=== PATIENT | male | born 1985 | race African-American/Black ===

== ENCOUNTER 2017-01-03 21:28 | Inpatient (IN) | payer OTHER ==
--- NOTE | ~2017-01-03 | PA ---
Unit #: [id number] #: [id number] Patient: KELLEE BRAND [id number] [place] [address] [id number] I MR#: [id number] NAME: KELLEE BRAND ROOM: P210 Age: 31 Sex: M Admission Date: 01/03/2017 : 1985 Date of Assessment: Attending Physician: Curtis Toure M.D. Admitting Physician: Curtis Toure M.D. PSYCHIATRIC ASSESSMENT LOCATION [facility], [address] [place] [address], room #210, bed #2. DATE OF SERVICE 01/04/2017. INFORMANTS The patient and chart. The patient is less than reliable, limited cooperation and responsiveness. CHIEF COMPLAINT "I just can't go on with life anymore." HISTORY OF PRESENT ILLNESS This is a 31-year-old male who has been admitted to [facility] multiple times, typically under Dr. Harden's care, who is currently unavailable. The patient returns now, after being gone for nearly a year, for issues with suicidal ideation, continued poor compliance with medication treatment and supposedly having auditory/visual hallucinations telling him to harm himself. The patient on interview today is very guarded and vague in his responses, often times citing the comment I just do not have the energy to talk about it right now when he was asked questions. He just kept saying over and over how much life "sucked" and that he could not deal with it any more. The chart reports that he told the initial interviewers that he had a family member who recently, as well as supposedly had attempted overdosing on medications at home at least twice in the last couple of weeks. When asked about this, the patient had no comment. The patient continues to voice thoughts about wanting to , to harm himself, that nobody would care, etc. When asked about recent drug use, he did not respond, again citing that he was feeling overwhelmed and did not want to talk about it. Staff reports he has been responsive to direction, no behavioral issues. The patient has not had any followup care, according to him, since he left here, so it is unclear where he has been receiving his psychiatric medications. When asked if he was getting through his primary care doctor, again he said I do not know. PAST PSYCHIATRIC HISTORY As noted above. Chronic history of suicidal ideation and reported attempts. Substance abuse is a comorbid issue with this individual, unclear about the accuracy of history of hallucinations. PAST MEDICAL HISTORY Unit #: [id number] #: [id number] Patient: KELLEE BRAND Reviewed with no changes. CURRENT MEDICATIONS Supposedly include lithium, Risperdal, trazodone unclear how compliant the patient has been with any of them. ALLERGIES No known drug allergies. FAMILY HISTORY Reported schizophrenia in a peripheral family member, beyond that no other issues. SOCIAL HISTORY The patient is essentially homeless, from his for 3 to 4 years now and has a high school degree, but is currently on disability. He has 2 grown children that he has limited contact with. SUBSTANCE ABUSE HISTORY Longstanding issues with alcohol, heroin, and, according to previous dictations, "anything he can get his hands on." The patient overall is unclear in his current usage, but has been treated many times in various facilities. MENTAL STATUS EXAMINATION General appearance; this is a poorly groomed male, looks much older than stated age, limited eye contact. Speech was clear, but brief. Mood was irritable, depressed with blunted affect. Thought process and content were fairly organized if not guarded, and no active HI. The patient still claiming SI with thoughts of walking into traffic and/or overdosing. Denies any acute auditory or visual hallucinations, but reported them recently. The patient's memory is currently intact, but it of questionable accuracy given his limited cooperation. Associations seemed guarded. Alert and oriented x4. Cognitive function seems to be moderate. Insight and judgment are poor. ASSETS AND LIABILITIES Assets include previous exposure to inpatient care and therapeutic interventions. Liabilities include failure for outpatient followup care, failure of proper medication management, homelessness, poor support. ADMITTING DIAGNOSES 1. Major depressive disorder, recurrent, severe, without psychotic features. 2. Cocaine dependency by history. 3. Cannabis dependency by history. PLAN The patient to be admitted for safety and stabilization for ongoing issues with suicidal ideation and depression. We will monitor closely for behavioral issues and provide proper treatment within the therapeutic milieu environments. The patient will be restarted on Risperdal 2 mg at bedtime as well as trazodone 50 mg at bedtime, as he has responded well to these in the past. We will add Zoloft 50 mg to help with further antidepressant benefit. The patient was made aware of this, educated about the side effects and he agreed. Treatment goals will be resolution of the patient's mood and suicidal ideation and to provide a safe controlled environment. Unit #: [id number] #: [id number] Patient: KELLEE BRAND DISCHARGE PLANNING Likely involving community resources and social service technician for additional support resources if possible. ESTIMATED LENGTH OF STAY Approximately 5 days depending on the patient's progress and response to treatment. Dictated by... Curtis Toure M.D. MARTI/mary lou TD: 01/04/2017 10:39 JOB #: [id number] PSYCHIATRIC ASSESSMENT Page 1 of 1 X Curtis Toure MD X PSYCHIATRIC ASSESSMENT
--- NOTE | ~2017-01-03 | PN ---
Unit #: [id number] #: [id number] Patient: KELLEE BRAND [id number] [facility] [address] [place] [address] [id number] MR#: [id number] NAME: KELLEE BRAND ROOM: P210 Age: 31 Sex: M Admission Date: 01/03/2017 : 1985 Attending Physician: Curtis Toure M.D. Admitting Physician: Curtis Toure M.D. Primary Care Physician: Primary Care Physician Fang HART NOTES DATE 01/06/2017 SUBJECTIVE UPDATE This is a 31-year-old male here with ongoing issues with severe depression and suicidal ideation. Patient continuing to report significant depression, thoughts about harming himself with vague plans of walking into traffic. Eye contact was slightly better today and patient seemed more focused but still has a very flat blunted affect. He is still very defeatist and hopeless. He is tolerating medications and made a request for change from Tylenol to ibuprofen for his back pain. MENTAL STATUS EXAMINATION General appearance is a limited groomed male somewhat slightly improved eye contact. Speech was clear and coherent with normal prosody but brief but was depressed with a flat and blunt affect. Thought process and content are grossly organized, linear, no overt evidence of psychosis. Positive for SI with vague plan about walking into traffic still but no HI. Patient's memory was grossly intact. Associations were normal. He is alert and oriented times four. Cognitive functioning is at baseline. Insight and judgement remained poor. RECOMMENDATIONS: Will continue patient's admission for safety and stabilization for ongoing issues with suicidal ideation and his depression. Will increase Zoloft from 50 to 100 mg today to better aid with this treatment as he is tolerating it thus far and will switch from Tylenol to ibuprofen 600 mg every 6 hours as needed pain. Patient encouraged to continue with groups and activities and socialization as much as possible. Dictated by... Curtis Toure M.D. MARTI/wendy TD: 01/06/2017 20:16 JOB #: [id number] Unit #: [id number] #: [id number] Patient: KELLEE BRAND PROGRESS NOTES Page 1 of 1 X Curtis Toure MD NOTE
--- NOTE | ~2017-01-03 | PN ---
Unit #: [id number] #: [id number] Patient: KELLEE BRAND [id number] [place] [address] [id number] MR#: [id number] NAME: KELLEE BRAND ROOM: P210 Age: 31 Sex: M Admission Date: 01/03/2017 : 1985 Attending Physician: Curtis Toure M.D. Admitting Physician: Curtis Toure M.D. Primary Care Physician: Fang Primary Care Physician [facility] PROGRESS NOTES LOCATION [facility] [address], room [address], bed number 2. DATE 01/05/17 SUBJECTIVE UPDATE This is a 31-year-old -Surinames[place] male here with ongoing issues of severe depression, suicide ideation. The patient is continuing to report significant depression, decreased functioning focus, appetite, sleep and wanting to . He does report tolerating medication changes well and says he feels maybe "a notch better today". He still limited in his desire to interact with peers and staff. He seems feel isolated on the unit. No acute complaints per staff. MENTAL STATUS EXAM General appearance is a limitedly groomed, -Surinamese male who appears older than stated age. Speech was clear but brief. Mood was depressed with a blunted affect. Eye contact was minimal. Thought process and content were fairly organized but distracted. Positive for SI with still thoughts about overdosing or walking into traffic. No HI today. No psychosis. The patient's memory was grossly intact. Associations were normal. He is alert and oriented x4. Cognitive function seems to be at baseline. Insight and judgement remain poor. RECOMMENDATIONS We will continue the patient's admission for safety and stabilization for ongoing depression and suicide ideation and related symptoms as noted above. The patient continues to remain at risk and will continue medication regimen as current with possible increase in Zoloft soon if the patient continues to show progress. We will continue to encourage ambulation, socialization in groups for cathartic intervention and we will monitor daily. Dictated by.Bradley Toure M.D. MARTI/oleg TD: 01/05/2017 10:18 JOB #: [id number] Unit #: [id number] #: [id number] Patient: KELLEE BRAND PROGRESS NOTES Page 1 of 1 X Curtis Toure MD PROGRESS NOTE
--- NOTE | ~2017-01-03 | DS ---
Unit #: [id number] #: [id number] Patient: KELLEE BRAND [id number] [place] [address] [id number] I MR#: [id number] NAME: KELLEE BRAND ROOM: [facility] Age: 31 Sex: M Admission Date: 01/03/2017 : 1985 Discharge Date: 01/07/2017 Attending Physician: Curtis Toure M.D. Primary Care Physician: Primary Care Physician No DISCHARGE SUMMARY REASON FOR ADMISSION Major depressive disorder, severe, recurrent, without psychotic features. The patient has been reporting suicidal ideation because of "bad stuff in my life." DIAGNOSTIC STUDIES PERTINENT LABORATORY DATA: The patient had routine blood work that showed elevated CMP that showed elevated glucose of 121, total protein of 5.6, albumin of 3.0, alkaline phosphatase of 96, otherwise rest of the findings were normal. TSH slightly low at 0.27, but T4 normal at 0.72. [place] level was subtherapeutic as it was checked upon admission because of him reporting he was supposed to be taking, and d-dimer was noted to be at 119. CBC showed hemoglobin slightly low at 12.3. MCV 73.8, MCH of 22.9, otherwise normal, were all within the accepted parameters. VDRL was nonreactive as was an RPR. Tox screen was positive for cocaine upon admission. Urinalysis showed 0.2, urobilinogen was otherwise normal. No other tests performed. HOSPITAL COURSE The patient was admitted for safety and stabilization for issues with his depressed mood. He denied any recent changes beyond cocaine use in terms of substance abuse, but also has a history of cannabis dependency. Overall, the patient initially presented with complaints of feeling suicidal. He was with thoughts of walking into traffic or otherwise harming himself with a very morose demeanor, blunted affect with limited eye contact. The patient was restarted on Risperdal and trazodone as he has been on those in the past and has done well with them, and lithium had been discontinued from his medication list as he already obviously was not compliant with it. In addition, the Risperdal was restarted as a 2-mg dose and trazodone at 50 as he had been on previously. In addition, he was put on Zoloft which was titrated up to 100 mg daily to help with depressed mood and affect. Over the course in the hospitalization, the patient showed a fairly rapid progress in his treatment with on the day of discharge his affect being remarkably brighter, good eye contact reporting that a cousin had , and he was asking to be discharged. He was denying any active SI or HI and was focused on following up at [facility]. The patient had a plan to go home with his family and be there with them during this transitional time. Overall, the patient was felt to have returned to his baseline and was appropriate for discharge. The patient was denying any complications with medications, and overall presentation had remarkably improved. DISCHARGE DIAGNOSES 1. Major depressive disorder, recurrent, severe without psychotic Unit #: [id number] #: [id number] Patient: KELLEE BRAND. 2. Cocaine dependency. 3. Cannabis dependency by history. FOLLOWUP Followup care will be through [facility] he has already established with. DISCHARGE MEDICATIONS 1. Zoloft 100 mg daily for depression and anxiety. 2. Risperdal 2 mg at bedtime for mood stabilization. 3. Trazodone 50 mg at night for sleep. CONDITION AT DISCHARGE Improved. PROGNOSIS Guarded given his repetitive history of admission and noncompliance. DISCHARGE DIET Regular. DISCHARGE ACTIVITY As tolerated. Dictated by... Curtis Toure M.D. MARTI/janell TD: 01/07/2017 10:08 JOB #: [id number] DISCHARGE SUMMARY Page 1 of 1 X Curtis Toure MD X DISCHARGE SUMMARY
--- NOTE | ~2017-01-03 | HP ---
Unit #: [id number] #: [id number] Patient: WILMER BRAND [id number] [facility] [address] [place] [address] [id number] I MR#: [id number] NAME: WILMER BRAND ROOM: P210 Age: 31 Sex: M Admission Date: 01/03/2017 : 1985 Attending Physician: Curtis Toure M.D. Admitting Physician: Curtis Toure M.D. Primary Care Physician: Primary Care Physician No HISTORY AND PHYSICAL HISTORY OF PRESENT ILLNESS Wilmer is a 31 year old admitted to [address] [place] [address] because of his drug use. He uses cocaine. PAST MEDICAL HISTORY 1. Long history of illicit substance abuse to include cocaine. 2. Asthma. 3. History of abuse. PAST SURGICAL HISTORY Nothing reported. ALLERGIES No known drug allergies. SOCIAL HISTORY Smokes 2 packs per day. Drinks alcohol frequently. Admits to using cocaine on a regular basis. FAMILY HISTORY Medically noncontributory. REVIEW OF SYSTEMS CONSTITUTIONAL: No fever or chills. HEENT: Denies any sore throat, ear pain or runny nose. CARDIOVASCULAR: Denies chest pain, irregular heart rhythm or palpitations. CHEST: Denies shortness of breath or cough. No hemoptysis. GASTROINTESTINAL: Denies nausea, vomiting, diarrhea or chronic constipation. ENDOCRINE: Denies history of increased thirst or urination. No recent significant weight loss or gain. GENITOURINARY: Denies dysuria, frequency, or hematuria. SKIN: Denies any rashes. HEMATOLOGIC: Denies history of increased bleeding or bruising. MUSCULOSKELETAL: Denies any hot, swollen joints. No generalized muscle pain. NEUROLOGIC: Denies problems with vision or speech. No frequent, severe headaches. No numbness, tingling or weakness in any extremities. Denies loss of bladder or bowel control. CURRENT MEDICATIONS Detox protocol. Unit #: [id number] #: [id number] Patient: WILMER BRAND PHYSICAL EXAMINATION GENERAL: Alert, appearing much, much older than his stated age of 31, in no apparent distress. VITAL SIGNS: Blood pressure 114/70, heart rate 60, respirations 16, temperature 98.6. WEIGHT: 227. HEIGHT: 5 feet 6 inches. SKIN: Warm and dry without rash or lesion. HEENT: Normocephalic. TMs not viewed. Oral and nasal passages clear. Conjunctivae clear. PERRLA. EOMs intact. NECK: Supple without lymphadenopathy or thyromegaly. HEART: Regular rate and rhythm without murmur. LUNGS: Clear. ABDOMEN: Soft, nontender. : Not done. EXTREMITIES: No evidence of cyanosis, clubbing or edema. Moves all without focal deficit. NEUROLOGICAL: Grossly within normal limits. Cranial Nerves: II: Visual caceres are intact. III, IV AND : Extraocular movements are intact. Pupils are equal, round and reactive to light. V: Facial sensation is grossly normal. VII: Facial movements and expression are normal. VIII: Auditory acuity grossly intact. IX, X: Uvula is midline. Phonation is normal. XI: Patient shrugs shoulders and turns head normally. XII: Tongue protrudes in the midline. Sensory and Motor Function: Sensory and motor sensation is grossly normal. Motor: moves all extremities well. Coordination: Gait is normal. Deep Tendon Reflexes: Intact. IMPRESSION Psychiatric admission. RECOMMENDATIONS PSYCHIATRIC: Per psychiatrist. MEDICAL: See no contraindications to participate in facility's activities. MEDICAL PROGNOSIS Good. MEDICAL CONDITION Stable. Dictated by... Noar Renteria P.A.-C. for Sunitha Montague/wendy TD: 01/04/2017 20:56 JOB #: [id number] Unit #: [id number] #: [id number] Patient: WILMER BRAND HISTORY AND PHYSICAL Page 1 of 1 X Nora Renteria X HISTORY AND PHYSICAL
[~2017-01-03 21:28] MED LIST: ADVAIR 2501 DISK W/D PO; ALBUTEROL17 GM INH; DOXYCYCLINE HY100 M1 PO; DOXYCYCLINE PO; FLEXERIL10 MG PO; IBUPROFEN800 MG PO; MEDROL4 MG/DOSE- PO; NAPROSYN500 MG PO; PREDNISONE PO; VICODIN 5/1 TAB 5/50 PO; VICODIN 5/500 T1 TAB PO; VICODIN PO; ZANTAC150 M1 PO; [UNRECOGNIZED DRUG - REMARK]
[2017-01-04 09:48] LABS: BASOPHIL% 0.9 % (0-2.5); EOSINOPHIL# 0.6 X10e3 (0-0.7); EOSINOPHIL% 10.8 % (0.0-7.0); HEMATOCRIT 39.6 % (38.0-50.0); HEMOGLOBIN 12.3 gm/dL (13.0-16.0); LYMPHOCYTE# 1.6 X10e3 (1.0-3.5); LYMPHOCYTE% 30.1 % (17.0-45.0); MEAN CELL VOLUME 73.8 FL (83-96); MEAN CORPUSCULAR HEMOGLOBIN 22.9 PG (28-34); MEAN PLATELET VOLUME 9.2 FL (6.5-11.5); MONOCYTE# 0.8 X10e3 (0-1.0); MONOCYTE% 14.6 % (3.0-12.0); NEUTROPHIL# 2.3 X10e3 (1.5-7.1); NEUTROPHIL% 43.6 % (40-75); PLATELET COUNT 282 X10e3 (140-420); RED BLOOD COUNT 5.36 X10e (3.90-5.60); RED CELL DISTRIBUTION WIDTH 14.6 % (11.0-15.5); WHITE BLOOD COUNT 5.3 X10e3 (4.0-10.5)
[2017-01-04 10:01] LABS: THYROID STIMULATING HORMONE 0.27 uIU/ml (0.34-5.60)
[2017-01-04 10:07] LABS: FREE THYROXIN (T4) 0.72 ng/dL (0.58-1.64)
[2017-01-04 10:16] LABS: DIFF IND NO
[2017-01-04 10:19] LABS: BILIRUBIN,TOTAL 0.7 mg/dL (0.2-2.0); CALCIUM SERUM 8.7 mg/dL (8.4-10.2); GLOM FILT RATE Estimated 117.4 mL/min (>60); POTASSIUM 3.8 mmol/L (3.5-5.1); PROTEIN TOTAL SERUM 5.6 g/dL (6.0-8.3)
[2017-01-05 10:08] LABS: URINE APPEARANCE CLEAR; URINE BILIRUBIN NEG (NEG); URINE BLOOD NEG (NEG); URINE COLOR DK YELLOW; URINE GLUCOSE NEG (NEG); URINE KETONE NEG (NEG); URINE LEUKOCYTE ESTERASE NEG (NEG); URINE NITRATE NEG (NEG); URINE PH 6.5 (5-8); URINE PROTEIN NEG (NEG); URINE SPECIFIC GRAVITY 1.006 (1.003-1.035); URINE UROBILINOGEN 0.2 MG/DL (NEG)
[2017-01-05 10:19] LABS: AMPHETAMINE NEG (NEG); BARBITURATES NEG (NEG); BENZODIAZEPINES NEG (NEG); COCAINE POS (NEG); MARIJUANA NEG (NEG); OPIATES NEG (NEG); TRICYCLIC ANTIDEPRESSANTS NEG (NEG); U METHADONE NEG (NEG)
== END 2017-01-07 13:50 | disposition home or self-care (01) | DRG 885 ==
LOC: P2S 21:28
PROVIDERS: Psychiatry & Neurology Psychiatry
PROC: HZ2ZZZZ Detoxification Services for Substance Abuse Treatment (ICD-10-PCS; principal; 2017-01-03)
DX: F33.2 Major depressive disorder, recurrent severe without psychotic features (principal); R45.851 Suicidal ideations; F14.20 Cocaine dependence, uncomplicated; J45.909 Unspecified asthma, uncomplicated; F17.210 Nicotine dependence, cigarettes, uncomplicated
CPT/HCPCS: 80053; 80307; 81003; 84439; 84443; 85025; 86592